=== PATIENT | male | born 1945 | race Two or more races ===

== ENCOUNTER → 2025-02-20 | Outpatient (CLI) | payer OTHER, SELFPAY ==
--- NOTE | 2025-02-20 14:30 | XR_ITS ---
Examination: MRI pelvis with intravenous contrast. MRI pelvis without intravenous contrast. Date and time of exam: February 20, 2025 1441 hours INDICATIONS: Prostatomegaly on pelvic sonogram June 03, 2017, outside imaging enlarged prostate 3.7 cm right-sided prostate mass, 3 prostate surgeries, with diagnosis prostate malignancy with persistent pelvic pain Technique: Multiple axial, sagittal and coronal sections of the pelvis obtained. Transverse images, TR 6020, TE 107. T1 weighted transverse images, TR 582, TE 9.5. T2-weighted sagittal images, TR 4000, TE 105. T2-weighted sagittal images, TR 4000, TE 5. Coronal images, TR 4210, TE 107. Axial and coronal images are obtained post 16 cc intravenous injection, gadolinium. Findings: Transverse prostate dimension 5.8 cm Right anterior lateral prostate cyst 35 mm Postcontrast images demonstrate mildly enhancing anterior 27 mm prostate nodule No free fluid in the pelvis Bladder intact. Tiny 1 to 3 mm mabel prostate lymph nodes No enhancing osseous lesions IMPRESSION: Significant prostatomegaly 35 mm anterior lateral prostate cyst Anterior 27 mm prostate nodule, recommend correlation with PSA and follow-up transrectal prostate sonography
== END | disposition home or self-care (01) ==
LOC: SMRI 14:07
PROVIDERS: PCP Nurse Practitioner Family; Referring Provider Nurse Practitioner Family; Visit Provider Nurse Practitioner Family
DX: N42.83 Cyst of prostate (principal)
CPT/HCPCS: 72197; A9579

== ENCOUNTER → 2025-03-01 | Outpatient (CLI) | payer OTHER, MEDICAID, SELFPAY ==
--- NOTE | 2025-03-01 10:13 | XR_ITS ---
Examination: Transrectal prostate sonography Technique: Grayscale transrectal sonographic images prostate Exam date and time: March 01, 2025, 10:30 AM Indications: MRI pelvis February 20, 2025 27 mm prostate nodule Findings: Prostate 5.4 x 4.3 x 6.3 cm volume 74.84 cm Septated cyst measuring 3.6 x 3.1 Anterior solid nodule 2.2 x 1.8 x 1.7 cm Impression: Significant prostatomegaly Solid prostate nodule anterior prostate 2.2 x 1.8 x 1.7 cm
== END | disposition home or self-care (01) ==
PROVIDERS: PCP Nurse Practitioner Family; Referring Provider Nurse Practitioner Family; Visit Provider Nurse Practitioner Family
DX: N40.2 Nodular prostate without lower urinary tract symptoms (principal); N40.0 Benign prostatic hyperplasia without lower urinary tract symptoms
CPT/HCPCS: 76872

== ENCOUNTER → 2025-04-08 | Outpatient (BNVA) | payer OTHER, MEDICAID, SELFPAY | END | disposition home or self-care (01) | PROVIDERS: PCP Nurse Practitioner Family; Referring Provider Nurse Practitioner Family; Visit Provider Urology | DX: N40.1 Benign prostatic hyperplasia with lower urinary tract symptoms (principal); N13.8 Other obstructive and reflux uropathy; R97.20 Elevated prostate specific antigen [PSA]; N40.2 Nodular prostate without lower urinary tract symptoms; I10 Essential (primary) hypertension; E66.9 Obesity, unspecified | CPT/HCPCS: 81003; 99212; G0463 ==

== ENCOUNTER → 2025-06-17 | Outpatient (BNVA) | payer OTHER, MEDICAID, SELFPAY | END | disposition home or self-care (01) | PROVIDERS: PCP Nurse Practitioner Family; Referring Provider Nurse Practitioner Family; Visit Provider Urology | DX: N40.1 Benign prostatic hyperplasia with lower urinary tract symptoms (principal); R39.12 Poor urinary stream | CPT/HCPCS: 51741; 51798 ==

== ENCOUNTER → 2025-06-22 | Outpatient (BNVA) | payer OTHER, MEDICAID, SELFPAY | END | disposition home or self-care (01) | PROVIDERS: PCP Nurse Practitioner Family; Referring Provider Nurse Practitioner Family; Visit Provider Urology | DX: N42.89 Other specified disorders of prostate (principal); N40.1 Benign prostatic hyperplasia with lower urinary tract symptoms; N13.8 Other obstructive and reflux uropathy | CPT/HCPCS: 55700; 76942; 81003; 96372; A4649; J1580; J3490; A9270 ==

== ENCOUNTER 2025-07-16 19:33 | Emergency (ER) | payer OTHER, MEDICAID, SELFPAY ==
[2025-07-16 19:34] VITALS: BMI 28.3
--- NOTE | 2025-07-16 19:51 | EKG_ITS ---
[facility] Test Date: 2025-07-16 Pat Name: LUIS AMARAL Department: Room: - Gender: Male [employer] Inspector: : 1945 Requested By: ED Temporary Provider Order Number: [id number] Reading MD: ED Temporary Provider Measurements Intervals [place] Rate: 68 P: 60 KS: 200 QRS: 34 QRSD: 97 T: 44 QT: 399 QTc: 427 Interpretive Statements SINUS RHYTHM No previous ECG available for comparison /store/S0/[id number].pdf
[2025-07-16 19:53] VITALS: BP 164/78; PULSE 75; RESP 18; TEMP 36.6; O2SAT 98
--- NOTE | 2025-07-16 22:16 | PC.NURSE ---
pt called back from lobby no answer
--- NOTE | 2025-07-16 22:16 | PC.NURSE ---
PT WAS NOT FOUND IN LOBBY
--- NOTE | 2025-07-16 22:32 | PC.NURSE ---
pt called back from lobby no answer
--- NOTE | 2025-07-16 23:09 | PC.NURSE ---
PT CALLED FROM LOBBY NO ANSWER
== END 2025-07-16 21:05 | disposition left against medical advice (07) ==
LOC: SERX 07-17 00:10
PROVIDERS: Emergency Provider Emergency Medicine
DX: Z53.21 Procedure and treatment not carried out due to patient leaving prior to being seen by health care provider (principal)
CPT/HCPCS: 93005; 99282

== ENCOUNTER → 2025-07-22 | Outpatient (CLI) | payer OTHER, MEDICAID, SELFPAY ==
--- NOTE | 2025-07-22 09:40 | XR_ITS ---
Examination: PA lateral chest 2 views Technique: Upright PA lateral chest 2 views Date and time: July 22, 2025 1003 hrs. Indications: Chest pain beginning one month ago. Findings: Mild prominence left ventricle. Moderate hyperexpansion. Moderate thoracic spondylosis. No pneumonia or pulmonary edema. Impression: COPD. No pneumonia or pulmonary edema.
== END | disposition home or self-care (01) ==
PROVIDERS: PCP Nurse Practitioner Family; Referring Provider Nurse Practitioner Family; Visit Provider Nurse Practitioner Family
DX: J44.9 Chronic obstructive pulmonary disease, unspecified (principal)
CPT/HCPCS: 71046